=== PATIENT | male | born 1935 | race Caucasian/White ===

== ENCOUNTER → 2017-01-25 | Outpatient (CLI) | payer MEDICARE, OTHER ==
--- NOTE | ~2017-01-25 | US37 ---
[facility] A Service of [facility] & [facility] RADIOLOGY TEXT RESULTS PATIENT: LAKESHIA ATKINSON LOCATION: CNIV : 37 UNIT #: [id number] AGE: [address]: Raman Joyner MD SEX: M ORDER DR: [id number] [facility] [address] [place], [place] [address] [id number] O MR#: [id number] Acc #: [id number] NAME: LAKESHIA ATKINSON : 1935 SEX: M STUDY DATE/TIME: 01/25/2017 15:00 UNIT: CNIV ROOM: STUDY DESCRIPTION: US Carotid W/Doppler Bilateral Attending Physician: Le Joyner M.D. Referring Physician: Le Joyner M.D. Ordering Physician: Le Joyner M.D. Primary Care Physician: Arian Dominique M.D. MEDICAL IMAGING REPORT This report is preliminary unless electronic signature is present EXAM Bilateral carotid duplex. CLINICAL HISTORY Bruit. FINDINGS There is patent flow seen throughout the right common carotid, internal carotid, and external carotid arteries. There are some scattered focal areas of calcification noted throughout the common carotid artery. There is also some plaque, which appears homogeneous and regular, seen in the right carotid bifurcation, internal carotid artery. The right common carotid artery peak velocity is 36 cm/second. The right internal carotid artery peak systolic/end-diastolic velocities are: Proximal 31/9 cm/second, mid 50/15 cm/second, and distal 52/16 cm/second. The right external carotid artery peak velocity is 42 cm/second and vertebral artery 18 cm/second. The right ICA/CCA ratio is 1.44. There is patent flow seen throughout left common carotid, internal carotid, and external carotid arteries. There is irregular, homogeneous, and echogenic plaque seen in the midportion of the left common carotid artery. There is also some homogeneous, regular appearing, and echogenic plaque seen in the proximal portion of the left internal carotid artery. The left common carotid artery has a peak velocity of 36 cm/second. The left internal carotid artery has peak systolic/end-diastolic velocities of: Proximal 39/10 cm/second, mid 62/15 cm/second, distal 54/13 cm/second. The left external carotid artery peak velocity is 65 cm/second, and vertebral artery 28 cm/second. The left ICA/CCA ratio is 1.72. IMPRESSION 1. There is mild atherosclerosis of the carotid arteries bilaterally, STS. [facility] A Service of [facility] & [facility] RADIOLOGY TEXT RESULTS PATIENT: LAKESHIA ATKINSON LOCATION: CNIV : 36 UNIT #: [id number] AGE: [address]: Raman Joyner MD SEX: M ORDER DR: which is not hemodynamically significant by duplex criteria (less than 50%). 2. Vertebral flow is antegrade bilaterally. Dictated by... Sohail Lemus M.D. THIS IS AN ELECTRONICALLY VERIFIED REPORT Sohail Lemus M.D. at 01/29/2017 8:24 AM AC/pc TD: 01/26/2017 09:20 JOB #: [id number] MEDICAL IMAGING REPORT COPY
== END | disposition home or self-care (01) ==
LOC: CNIV 14:38
DX: R09.89 Other specified symptoms and signs involving the circulatory and respiratory systems (principal); I65.23 Occlusion and stenosis of bilateral carotid arteries
CPT/HCPCS: 93880